=== PATIENT | male | born 1995 | race Caucasian/White ===

== ENCOUNTER 2019-01-17 18:11 | Emergency (ER) | payer SELFPAY ==
--- NOTE | 2019-01-17 20:40 | ER ---
Nurse's Notes [facility] Name: Porfirio Kim Jr Age: 23 yrs Sex: Male : 1995 Arrival Date: 01/17/2019 Time: 18:12 Bed 17 Private MD: Diagnosis: Hypertension Presentation: 01/17 18:20 Presenting complaint: Patient states: my BP is high, i checked it today- 148/90, i felt hj dizzy today; denies N/V;. Transition of care: patient was not received from another setting of care. Onset of symptoms was January 17, 2019. Risk Assessment: Do you want to hurt yourself or someone else? Patient reports no desire to harm self or others. Initial Sepsis Screen: Does the patient meet any 2 criteria? No. Patient's initial sepsis screen is negative. Does the patient have a suspected source of infection? No. Patient's initial sepsis screen is negative. Care prior to arrival: None. 18:20 Method Of Arrival: Ambulatory 18:20 Acuity: JALEN 3 hj Historical: - Allergies: 18:22 No Known Allergies; hj - PMHx: 18:22 None; hj - PSHx: 18:22 None; hj - Family history:: not pertinent. - Hospitalizations: : No recent hospitalization is reported. Screenin:15 Abuse screen: Denies threats or abuse. Nutritional screening: No deficits noted. jb4 Tuberculosis screening: No symptoms or risk factors identified. Fall Risk None identified. Assessment: 19:15 General: Appears in no apparent distress. comfortable, Behavior is calm, cooperative, jb4 appropriate for age. Pain: Denies pain. Neuro: Level of Consciousness is awake, alert, obeys commands, Oriented to person, place, time, situation. Cardiovascular: Patient's skin is warm and dry. Rhythm is sinus rhythm. Respiratory: Airway is patent Respiratory effort is even, unlabored, Respiratory pattern is regular, symmetrical. GI: No deficits noted. No signs and/or symptoms were reported involving the gastrointestinal system. : No deficits noted. No signs and/or symptoms were reported regarding the genitourinary system. EENT: No deficits noted. No signs and/or symptoms were reported regarding the EENT system. Derm: Skin is intact, Skin is pink, warm \T\ dry. Musculoskeletal: Circulation, motion, and sensation intact. Range of motion: intact in all extremities. 20:34 Reassessment: Patient appears in no apparent distress at this time. Patient and/or jb4 family updated on plan of care and expected duration. Pain level reassessed. Patient is alert, oriented x 3, equal unlabored respirations, skin warm/dry/pink. 21:17 Reassessment: Patient appears in no apparent distress at this time. Patient and/or jb4 family updated on plan of care and expected duration. Pain level reassessed. Patient is alert, oriented x 3, equal unlabored respirations, skin warm/dry/pink. Pt verbalized understanding of d/c and follow up instructions. Gave teach back instructions. Ambulated out of Ed with steady gait. Vital Signs: 18:22 BP 155 / 82; Pulse 84; Resp 18; Temp 98.3(O); Pulse Ox 99% on R/A; Weight 85.28 kg; hj Height 5 ft. 5 in. (165.10 cm); 19:30 BP 131 / 91; Pulse 78; Resp 16; Pulse Ox 97% on R/A; jb4 20:30 BP 129 / 71; Pulse 82; Resp 16; Pulse Ox 98% on R/A; jb4 18:22 Body Mass Index 31.29 (85.28 kg, 165.10 cm) ED Course: 18:12 Patient arrived in ED. rg4 18:22 Triage completed. hj 18:22 Arm band placed on left wrist. hj 19:08 Fred Paz MD is Attending Physician. rn 19:15 Patient has correct armband on for positive identification. Bed in low position. Call jb4 light in reach. Side rails up X 1. 19:26 Lorena Vora, RN is Primary Nurse. ph 19:27 Estuardo Sanderson, RN is Primary Nurse. jb4 21:17 No provider procedures requiring assistance completed. Patient did not have IV access jb4 during this emergency room visit. Administered Medications: No medications were administered Outcome: 20:39 Discharge ordered by . rn 21:17 Discharged to home ambulatory. jb4 21:17 Condition: stable 21:17 Discharge instructions given to patient, Instructed on discharge instructions, follow up and referral plans. medication usage, Demonstrated understanding of instructions, follow-up care, medications, Prescriptions given X 1. 21:19 Patient left the ED. jb4 Signatures: Fred Paz MD MD rn Hall, Patricia, RN RN James Montez RN RN Zakiya Nagy 4 Estuardo Sanderson RN RN jb4 Corrections: (The following items were deleted from the chart) 18:24 18:22 Pulse 84bpm; Resp 18bpm; Pulse Ox 99% RA; Temp 98.3F Oral; 85.28 kg; Height 5 ft. hj 5 in.; BMI: 31.2; hj
--- NOTE | 2019-01-17 20:40 | EDPHYS ---
Physician Documentation [facility] Name: Porfirio Kim Jr Age: 23 yrs Sex: Male : 1995 Arrival Date: 01/17/2019 Time: 18:12 Bed 17 Private MD: ED Physician Fred Paz HPI: 01/17 19:25 This 23 yrs old Male presents to ER via Ambulatory with complaints of High rn Blood Pressure. 19:25 The patient has elevated blood pressure and discovered this at home. Onset: The rn symptoms/episode began/occurred reports since last march. Modifying factors:. Severity of symptoms: At its worst the blood pressure was mild. The patient has experienced similar episodes in the past. Reports high daily BP since last March, had trouble passing work physical, no acute symptoms, reports when BP is high feels foggy, no focal neuro complaints, no chest pain or sob. Reports tried to get in with a doctor today, unable to so came here. . Historical: - Allergies: 18:22 No Known Allergies; hj - PMHx: 18:22 None; hj - PSHx: 18:22 None; hj - Family history:: not pertinent. - Hospitalizations: : No recent hospitalization is reported. ROS: 19:25 Constitutional: Negative for fever, chills, and weight loss, Eyes: Negative for injury, rn pain, redness, and discharge, Neck: Negative for injury, pain, and swelling, Cardiovascular: Negative for chest pain, palpitations, and edema, Respiratory: Negative for shortness of breath, cough, wheezing, and pleuritic chest pain, Abdomen/GI: Negative for abdominal pain, nausea, vomiting, diarrhea, and constipation, MS/Extremity: Negative for injury and deformity, Skin: Negative for injury, rash, and discoloration, Neuro: Negative for headache, weakness, numbness, tingling, and seizure. Exam: 19:25 Constitutional: This is a well developed, well nourished patient who is awake, alert, rn and in no acute distress. Sitting upright and talking on the phone when I entered. Head/Face: Normocephalic, atraumatic. Eyes: Pupils equal round and reactive to light, extra-ocular motions intact. Lids and lashes normal. Conjunctiva and sclera are non-icteric and not injected. Cornea within normal limits. Periorbital areas with no swelling, redness, or edema. Neck: Trachea midline, no thyromegaly or masses palpated, and no cervical lymphadenopathy. Supple, full range of motion without nuchal rigidity, or vertebral point tenderness. No Meningismus. Cardiovascular: Regular rate and rhythm. No pulse deficits. Respiratory: Lungs have equal breath sounds bilaterally, clear to auscultation. No increased work of breathing, no retractions or nasal flaring. Abdomen/GI: soft, non-tender MS/ Extremity: Pulses equal, no cyanosis. Neurovascular intact. Full, normal range of motion. Equal circumference. Neuro: Awake and alert, GCS 15, oriented to person, place, time, and situation. Cranial nerves II-XII grossly intact. Motor strength 5/5 in all extremities. Sensory grossly intact. Cerebellar exam normal. Normal gait. 20:35 ECG was reviewed by the Attending Physician. rn Vital Signs: 18:22 BP 155 / 82; Pulse 84; Resp 18; Temp 98.3(O); Pulse Ox 99% on R/A; Weight 85.28 kg; hj Height 5 ft. 5 in. (165.10 cm); 19:30 BP 131 / 91; Pulse 78; Resp 16; Pulse Ox 97% on R/A; jb4 20:30 BP 129 / 71; Pulse 82; Resp 16; Pulse Ox 98% on R/A; jb4 18:22 Body Mass Index 31.29 (85.28 kg, 165.10 cm) MDM: 19:08 Patient medically screened. rn 20:37 Differential diagnosis: HTN. Data reviewed: vital signs, nurses notes, EKG, and as a rn result, I will discharge patient. Counseling: I had a detailed discussion with the patient and/or guardian regarding: the historical points, exam findings, and any diagnostic results supporting the discharge/admit diagnosis, the presence of at least one elevated blood pressure reading (>120/80) during this emergency department visit, the need for outpatient follow up, to return to the emergency department if symptoms worsen or persist or if there are any questions or concerns that arise at home. Response to treatment: the patient's symptoms have mildly improved after treatment, and as a result, I will discharge patient. Special discussion: I have referred the patient to see his PCP for further evaluation of high blood pressure. I discussed with the patient/guardian in detail that at this point there is no indication for admission to the hospital. It is understood, however, that if the symptoms persist or worsen the patient needs to return immediately for re-evaluation. Based on the history and exam findings, there is no indication for further emergent testing or inpatient evaluation. I discussed with the patient/guardian the need to see the primary care provider for further evaluation of the symptoms. ED course: Pt with almost a year of documented high BP, will start on low dose HCTZ and recommend close monitoring and pcp f/u.. 01/17 19:24 Order name: EKG; Complete Time: 19:23 rn 01/17 19:24 Order name: EKG - Nurse/Tech; Complete Time: : rn EC:35 Rate is 68 beats/min. Rhythm is regular. Right axis deviation noted. QRS is positive in rn lead aVF and negative in lead I. CA interval is normal. QRS interval is normal. QT interval is normal. No Q waves. T waves are Inverted in leads III, aVF. No ST changes noted. Clinical impression: NSR w/ Non-specific ST/T Changes. Interpreted by me. Reviewed by me. Administered Medications: No medications were administered Disposition: 01/17/19 20:39 Discharged to Home. Impression: Hypertension. - Condition is Stable. - Discharge Instructions: Hypertension. - Prescriptions for Hydrochlorothiazide 25 mg Oral Tablet - take 1 tablet by ORAL route once daily .; 30 tablet. - Medication Reconciliation Form, Thank You Letter, Antibiotic Education, Prescription Opioid Use form. - Follow up: Private Physician; When: As needed; Reason: Recheck today's complaints, Re-evaluation by your physician. - Problem is an ongoing problem. - Symptoms have improved. Signatures: Frde Paz MD MD rn Joaquin, Henry, RN RN hj Bryson, James, RN RN jb4 Corrections: (The following items were deleted from the chart) 21:19 20:39 01/17/2019 20:39 Discharged to Home. Impression: Hypertension. Condition is jb4 Stable. Forms are Medication Reconciliation Form, Thank You Letter, Antibiotic Education, Prescription Opioid Use. Follow up: Private Physician; When: As needed; Reason: Recheck today's complaints, Re-evaluation by your physician. Problem is an ongoing problem. Symptoms have improved. rn
--- NOTE | 2019-01-18 07:11 | EKG ---
Test Date: 2019-01-17 Test Time: 19:51:53 Box Loader: CHARY MEASUREMENT RESULTS: Intervals: Rate: 68 NE: 124 QRSD: 90 QT: 358 QTc: 380 [place]: P: -26 NE: 124 QRS: 134 T: -22 INTERPRETIVE STATEMENTS: Normal sinus rhythm with sinus arrhythmia Right axis deviation Otherwise normal ECG No previous ECG available for comparison Electronically Signed On 01-18-19 07:10:37 CDT by Luan Caceres
== END 2019-01-17 21:19 | disposition home or self-care (01) ==
LOC: ER 18:11
DX: I10 Essential (primary) hypertension (principal)
CPT/HCPCS: 93005; 99284

== ENCOUNTER 2019-02-08 18:53 | Emergency (ER) | payer SELFPAY ==
[2019-02-08 19:40] LABS: Absolute Lymphocytes (CBC) 2.1 K/uL (0.7-4.9); Basophils % 0.7 % (0-1.3); Hematocrit 43.7 % (39.6-49.0); Lymphocytes % 23.8 % (15.3-44.8); MPV 8.6 fL (7.6-11.3); RBC Red Blood Cell Count 5.43 M/uL (4.33-5.43)
[2019-02-08 20:00] LABS: BUN Blood Urea Nitrogen 19 mg/dL (7-18); Bicarbonate 28 mmol/L (21-32); Glucose Level 95 mg/dL (74-106); Sodium Level 141 mmol/L (136-145); Troponin (Emerg Dept Use Only) < 0.02 ng/mL (0.0-0.045)
--- NOTE | 2019-02-08 20:08 | RAD REPORT ---
EXAM DESCRIPTION: RAD - Chest Single View - 02/08/2019 8:02 pm CLINICAL HISTORY: CHEST PAIN Chest pain. COMPARISON: <Comparisons> FINDINGS: Portable technique limits examination quality. The lungs are grossly clear. The heart is normal in size. No displaced fractures. IMPRESSION: No acute intrathoracic process suspected.
--- NOTE | 2019-02-08 21:39 | EDPHYS ---
Physician Documentation [facility] Name: Porfirio Kim Jr Age: 23 yrs Sex: Male : 1995 Arrival Date: 02/08/2019 Time: 18:57 Bed 30 Private MD: ED Physician Drake Larsen HPI: 02/08 21:35 This 23 yrs old Male presents to ER via Ambulatory with complaints of Chest jr8 Pain. 21:35 The patient or guardian reports chest pain that is located primarily in the substernal jr8 area. The pain does not radiate. Associated signs and symptoms: The patient has no apparent associated signs or symptoms. The chest pain is described as burning. Duration: The patient or guardian reports a single episode, that is still ongoing. Modifying factors: The symptoms are alleviated by nothing. the symptoms are aggravated by nothing. Severity of pain: At its worst the pain was mild in the emergency department the pain is unchanged. The patient has not experienced similar symptoms in the past. The patient has not recently seen a physician. Historical: - Allergies: 19:14 No Known Allergies; tr5 - Home Meds: 19:14 Protonix 20 mg Oral TbEC [Active]; hydrochlorothiazide 25 mg Oral tab [Active]; tr5 telmisartan 20 mg oral tab [Active]; - PMHx: 19:14 Hypertension; tr5 - PSHx: 19:14 None; tr5 - Immunization history:: Adult Immunizations up to date. - Social history:: Smoking status: Patient/guardian denies using tobacco, the patient reports quitting approximately 0 years ago, Patient uses smoking CBD products, but hasn't in 4-5 days. . - Ebola Screening: : No symptoms or risks identified at this time. ROS: 21:35 Eyes: Negative for injury, pain, redness, and discharge, ENT: Negative for injury, jr8 pain, and discharge, Neck: Negative for injury, pain, and swelling, Respiratory: Negative for shortness of breath, cough, wheezing, and pleuritic chest pain, Abdomen/GI: Negative for abdominal pain, nausea, vomiting, diarrhea, and constipation, Back: Negative for injury and pain, MS/Extremity: Negative for injury and deformity, Skin: Negative for injury, rash, and discoloration, Neuro: Negative for headache, weakness, numbness, tingling, and seizure. 21:35 Cardiovascular: Positive for chest pain, Negative for edema, orthopnea, palpitations, paroxysmal nocturnal dyspnea. Exam: 21:35 Eyes: Pupils equal round and reactive to light, extra-ocular motions intact. Lids and jr8 lashes normal. Conjunctiva and sclera are non-icteric and not injected. Cornea within normal limits. Periorbital areas with no swelling, redness, or edema. ENT: Nares patent. No nasal discharge, no septal abnormalities noted. Tympanic membranes are normal and external auditory canals are clear. Oropharynx with no redness, swelling, or masses, exudates, or evidence of obstruction, uvula midline. Mucous membranes moist. Neck: Trachea midline, no thyromegaly or masses palpated, and no cervical lymphadenopathy. Supple, full range of motion without nuchal rigidity, or vertebral point tenderness. No Meningismus. Cardiovascular: Regular rate and rhythm with a normal S1 and S2. No gallops, murmurs, or rubs. Normal PMI, no JVD. No pulse deficits. Respiratory: Lungs have equal breath sounds bilaterally, clear to auscultation and percussion. No rales, rhonchi or wheezes noted. No increased work of breathing, no retractions or nasal flaring. Abdomen/GI: Soft, non-tender, with normal bowel sounds. No distension or tympany. No guarding or rebound. No evidence of tenderness throughout. Back: No spinal tenderness. No costovertebral tenderness. Full range of motion. Skin: Warm, dry with normal turgor. Normal color with no rashes, no lesions, and no evidence of cellulitis. MS/ Extremity: Pulses equal, no cyanosis. Neurovascular intact. Full, normal range of motion. Neuro: Awake and alert, GCS 15, oriented to person, place, time, and situation. Cranial nerves II-XII grossly intact. Motor strength 5/5 in all extremities. Sensory grossly intact. Cerebellar exam normal. Normal gait. Vital Signs: 19:15 BP 140 / 75; Pulse 75; Resp 16; Temp 98.3(O); Pulse Ox 99% on R/A; Weight 85.28 kg (R); tr5 Height 5 ft. 5 in. (165.10 cm); Pain 5/10; 19:46 BP 126 / 72; Pulse 76; Resp 16; Pulse Ox 100% on R/A; tr5 20:30 BP 132 / 70; Pulse 77; Resp 16; Pulse Ox 100% on R/A; tr5 21:34 BP 128 / 72; Pulse 72; Resp 17; Pulse Ox 100% on R/A; tr5 19:15 Body Mass Index 31.28 (85.28 kg, 165.10 cm) tr5 MDM: 19:15 Patient medically screened. 8 21:35 Data reviewed: vital signs, nurses notes, lab test result(s), EKG, radiologic studies, jr plain films, and as a result, I will discharge patient. Data interpreted: Pulse oximetry: on room air is 100 %. Interpretation: normal. Counseling: I had a detailed discussion with the patient and/or guardian regarding: the historical points, exam findings, and any diagnostic results supporting the discharge/admit diagnosis, lab results, radiology results, the need for outpatient follow up, a family practitioner, to return to the emergency department if symptoms worsen or persist or if there are any questions or concerns that arise at home. 02/08 19:21 Order name: CBC with Diff [facility] 02/08 19:21 Order name: Basic Metabolic Panel [facility] 02/08 19:21 Order name: Troponin (emerg Dept Use Only) [facility] 02/08 19:44 Order name: CBC with Automated Diff; Complete Time: 20:05 EDMS 02/08 20:01 Order name: Basic Metabolic Panel; Complete Time: 20:05 EDMS 02/08 20:01 Order name: Troponin (Emerg Dept Use Only); Complete Time: 20:05 EDMS 02/08 19:17 Order name: EKG - Nurse/Tech; Complete Time: 19:17 [facility] 02/08 19:17 Order name: XRAY Chest (1 view) [facility] 02/08 19:21 Order name: IV; Complete Time: 19:25 [facility] 02/08 20:11 Order name: RAD; Complete Time: 20:30 EDMS Administered Medications: No medications were administered Disposition: 02/08/19 21:38 Discharged to Home. Impression: Chest pain, unspecified. - Condition is Stable. - Discharge Instructions: Nonspecific Chest Pain. - Medication Reconciliation Form, Thank You Letter, Antibiotic Education, Prescription Opioid Use form. - Follow up: Private Physician; When: 2 - 3 days; Reason: Recheck today's complaints, Continuance of care, Re-evaluation by your physician. - Problem is new. - Symptoms have improved. Signatures: Dispatcher [employer] Rogerio Hayden PA PA jr8 Brandan Cardona, RN RN tr5 Corrections: (The following items were deleted from the chart) 21:49 21:38 02/08/2019 21:38 Discharged to Home. Impression: Chest pain, unspecified. tr5 Condition is Stable. Forms are Medication Reconciliation Form, Thank You Letter, Antibiotic Education, Prescription Opioid Use. Follow up: Private Physician; When: 2 - 3 days; Reason: Recheck today's complaints, Continuance of care, Re-evaluation by your physician. Problem is new. Symptoms have improved. jr8
--- NOTE | 2019-02-08 21:39 | ER ---
Nurse's Notes [facility] Name: Porfirio Kim Jr Age: 23 yrs Sex: Male : 1995 Arrival Date: 02/08/2019 Time: 18:57 Bed 30 Private MD: Diagnosis: Chest pain, unspecified Presentation: 02/08 19:10 Presenting complaint: Patient states: Today around 4:30 after work I started having a tr5 burning type chest pain in the middle part of my chest. About a 5/10. I was seen here in the ER about a month ago for high blood pressure. I was told to follow up with a PCP but i have not yet. Transition of care: patient was not received from another setting of care. Onset of symptoms was February 08, 2019. Risk Assessment: Do you want to hurt yourself or someone else? Patient reports no desire to harm self or others. Initial Sepsis Screen: Does the patient meet any 2 criteria? No. Patient's initial sepsis screen is negative. Does the patient have a suspected source of infection? No. Patient's initial sepsis screen is negative. Care prior to arrival: None. 19:10 Method Of Arrival: Ambulatory tr5 19:10 Acuity: JALEN 3 tr5 Historical: - Allergies: 19:14 No Known Allergies; tr5 - Home Meds: 19:14 Protonix 20 mg Oral TbEC [Active]; hydrochlorothiazide 25 mg Oral tab [Active]; tr5 telmisartan 20 mg oral tab [Active]; - PMHx: 19:14 Hypertension; tr5 - PSHx: 19:14 None; tr5 - Immunization history:: Adult Immunizations up to date. - Social history:: Smoking status: Patient/guardian denies using tobacco, the patient reports quitting approximately 0 years ago, Patient uses smoking CBD products, but hasn't in 4-5 days. . - Ebola Screening: : No symptoms or risks identified at this time. Screenin:17 Abuse screen: Denies threats or abuse. Nutritional screening: No deficits noted. tr5 Tuberculosis screening: No symptoms or risk factors identified. Fall Risk None identified. Assessment: 19:29 General: Appears uncomfortable, Behavior is calm, cooperative, appropriate for age. tr5 Pain: Complains of pain in mid-sternal area Pain does not radiate. Pain currently is 5 out of 10 on a pain scale. Quality of pain is described as burning, Pain began 3 hours ago. Alleviated by nothing. Neuro: Level of Consciousness is awake, alert, obeys commands, Oriented to person, place, time, situation, Car Storer are equal bilaterally Moves all extremities. Cardiovascular: Heart tones present Capillary refill < 3 seconds Pulses are all present. Edema is absent. Rhythm is regular Chest pain. Respiratory: Airway is patent Respiratory effort is even, unlabored, Respiratory pattern is regular, symmetrical. GI: No signs and/or symptoms were reported involving the gastrointestinal system. : No signs and/or symptoms were reported regarding the genitourinary system. EENT: No signs and/or symptoms were reported regarding the EENT system. Derm: Skin is intact, Skin is dry, Skin is normal, Skin temperature is warm. Musculoskeletal: Capillary refill < 3 seconds, Range of motion: intact in all extremities. 20:30 Reassessment: Patient appears in no apparent distress at this time. Patient and/or tr5 family updated on plan of care and expected duration. Pain level reassessed. Patient is alert, oriented x 3, equal unlabored respirations, skin warm/dry/pink. 21:34 Reassessment: No changes from previously documented assessment. Patient and/or family tr5 updated on plan of care and expected duration. Pain level reassessed. Patient is alert, oriented x 3, equal unlabored respirations, skin warm/dry/pink. Vital Signs: 19:15 BP 140 / 75; Pulse 75; Resp 16; Temp 98.3(O); Pulse Ox 99% on R/A; Weight 85.28 kg (R); tr5 Height 5 ft. 5 in. (165.10 cm); Pain 5/10; 19:46 BP 126 / 72; Pulse 76; Resp 16; Pulse Ox 100% on R/A; tr5 20:30 BP 132 / 70; Pulse 77; Resp 16; Pulse Ox 100% on R/A; tr5 21:34 BP 128 / 72; Pulse 72; Resp 17; Pulse Ox 100% on R/A; tr5 19:15 Body Mass Index 31.28 (85.28 kg, 165.10 cm) tr5 ED Course: 18:57 Patient arrived in ED. mr 19:03 Rogerio Dukes PA is PHCP. jr8 19:03 Drake Larsen MD is Attending Physician. jr8 19:10 Brandan Cardona, RN is Primary Nurse. tr5 19:12 Triage completed. tr5 19:15 Antipyretic given from triage as ordered by the ER provider. Arm band placed on. EKG tr5 completed in triage. Results shown to MD. 19:17 Patient has correct armband on for positive identification. Bed in low position. Call tr5 light in reach. auto hauler on. Pulse ox on. NIBP on. 19:25 Initial lab(s) drawn, by me, sent to lab. EKG done, by ED staff, reviewed by Rogerio PRADHAN. Inserted saline lock: 20 gauge in right antecubital area, using aseptic technique. Blood collected. Patient maintains SpO2 saturation greater than 95% on room air. 19:35 Troponin (emerg Dept Use Only) Sent. jp3 19:35 Basic Metabolic Panel Sent. jp3 19:35 CBC with Diff Sent. jp3 21:46 No provider procedures requiring assistance completed. IV discontinued. tr5 Administered Medications: No medications were administered Outcome: 21:38 Discharge ordered by MD. jr8 21:46 Discharged to home ambulatory. tr5 21:46 Condition: stable 21:46 Discharge instructions given to patient, Instructed on discharge instructions, follow up and referral plans. Demonstrated understanding of instructions, follow-up care. 21:49 Patient left the ED. tr5 Signatures: Queta Campbell Rogerio Dukes PA PA jr8 Woodrow Ruvalcaba jp3 Brandan Cardona, RN RN tr5
--- NOTE | 2019-02-09 07:33 | EKG ---
Test Date: 2019-02-08 Test Time: 19:08:51 Locomotive Engineer: KAREN MEASUREMENT RESULTS: Intervals: Rate: 78 IA: 136 QRSD: 90 QT: 342 QTc: 389 [place]: P: 67 IA: 136 QRS: 82 T: 38 INTERPRETIVE STATEMENTS: Normal sinus rhythm with sinus arrhythmia Normal ECG Compared to ECG 01/17/2019 19:51:53 Right-axis deviation no longer present Electronically Signed On 02-09-19 07:31:22 CDT by Emilio Newman
== END 2019-02-08 21:49 | disposition home or self-care (01) ==
LOC: ER 18:53
DX: R07.9 Chest pain, unspecified (principal); I10 Essential (primary) hypertension
CPT/HCPCS: 36415; 71045; 80048; 84484; 85025; 93005

== ENCOUNTER 2019-02-16 20:17 | Emergency (ER) | payer SELFPAY ==
--- NOTE | 2019-02-16 20:55 | EDPHYS ---
Physician Documentation [facility] Name: Porfirio Kim Jr Age: 23 yrs Sex: Male : 1995 Arrival Date: 02/16/2019 Time: 20:20 Bed 26 Private MD: ED Physician Cristi Shah HPI: 02/16 21:05 This 23 yrs old Male presents to ER via Ambulatory with complaints of Penile kb Pain. 21:05 The patient presents with white spots on penis . Onset: The symptoms/episode kb began/occurred 2 month(s) ago. Modifying factors: The symptoms are alleviated by nothing, the symptoms are aggravated by nothing. Associated signs and symptoms: The patient has no apparent associated signs or symptoms. Severity of symptoms: At their worst the symptoms were mild, in the emergency department the symptoms are unchanged. The patient has not experienced similar symptoms in the past. The patient has not recently seen a physician. Pt reports white spots that come and go on penis. Denies any pain or drainage. STates it started 2-3 months ago. is only sexual partner and she was recently tested for all STDs because of , all negative. . Historical: - Allergies: 20:36 No Known Allergies; lp1 - Home Meds: 20:36 Protonix 20 mg Oral TbEC [Active]; telmisartan 20 mg Oral tab [Active]; lp1 - PMHx: 20:36 Hypertension; lp1 - PSHx: 20:36 None; lp1 - Immunization history:: Adult Immunizations up to date. - Social history:: Smoking status: Patient/guardian denies using tobacco. - Ebola Screening: : No symptoms or risks identified at this time. ROS: 21:10 Constitutional: Negative for fever, chills, and weight loss, Neck: Negative for injury, kb pain, and swelling, Cardiovascular: Negative for chest pain, palpitations, and edema, Respiratory: Negative for shortness of breath, cough, wheezing, and pleuritic chest pain, Abdomen/GI: Negative for abdominal pain, nausea, vomiting, diarrhea, and constipation, MS/Extremity: Negative for injury and deformity, Neuro: Negative for headache, weakness, numbness, tingling, and seizure. 21:10 Skin: Positive for rash. Exam: 21:08 Constitutional: This is a well developed, well nourished patient who is awake, alert, kb and in no acute distress. Head/Face: Normocephalic, atraumatic. Chest/axilla: Normal chest wall appearance and motion. Nontender with no deformity. No lesions are appreciated. Cardiovascular: Regular rate and rhythm with a normal S1 and S2. No gallops, murmurs, or rubs. Normal PMI, no JVD. No pulse deficits. Respiratory: Lungs have equal breath sounds bilaterally, clear to auscultation and percussion. No rales, rhonchi or wheezes noted. No increased work of breathing, no retractions or nasal flaring. Abdomen/GI: Soft, non-tender, with normal bowel sounds. No distension or tympany. No guarding or rebound. No evidence of tenderness throughout. MS/ Extremity: Pulses equal, no cyanosis. Neurovascular intact. Full, normal range of motion. Neuro: Awake and alert, GCS 15, oriented to person, place, time, and situation. Cranial nerves II-XII grossly intact. Motor strength 5/5 in all extremities. Sensory grossly intact. Cerebellar exam normal. Normal gait. 21:08 Skin: rash can be described as small white bumps , on the shaft of penis. Vital Signs: 20:36 BP 150 / 82; Pulse 90; Resp 18; Temp 98.7(TE); Pulse Ox 100% on R/A; Weight 83.91 kg lp1 (R); Height 5 ft. 5 in. (165.10 cm); Pain 0/10; 20:36 Body Mass Index 30.79 (83.91 kg, 165.10 cm) lp1 MDM: 20:43 Patient medically screened. kb 21:08 Data reviewed: vital signs, nurses notes. Data interpreted: Pulse oximetry: on room air kb is 100 %. Interpretation: normal. Counseling: I had a detailed discussion with the patient and/or guardian regarding: the historical points, exam findings, and any diagnostic results supporting the discharge/admit diagnosis, the need for outpatient follow up, a safety spec, to return to the emergency department if symptoms worsen or persist or if there are any questions or concerns that arise at home. ED course: Recommended pt see a safety spec for rash. Pt reports he has been told that already, but has been unable to go due to work. Just came to make sure it wasn't an STD. . Administered Medications: No medications were administered Disposition: 21:55 Co-signature as Attending Physician, Cristi Shah MD I agree with the assessment and kdr plan of care. Disposition: 02/16/19 20:54 Discharged to Home. Impression: Rash and other nonspecific skin eruption. - Condition is Stable. - Discharge Instructions: Rash, [id number]. - Medication Reconciliation Form, Thank You Letter, Antibiotic Education, Prescription Opioid Use form. - Follow up: Emergency Department; When: As needed; Reason: Worsening of condition. Follow up: Private Physician; When: 2 - 3 days; Reason: Recheck today's complaints, Continuance of care, Re-evaluation by your physician. Signatures: Noni Elizondo, MEDICAL RECORDS LIBRARY PROFESSOR-C MEDICAL RECORDS LIBRARY PROFESSOR-Cristi Cotton MD MD kdr Geno Wood, RN RN lp1 Tayler Reynaga RN RN ca1 Corrections: (The following items were deleted from the chart) 21:22 20:54 02/16/2019 20:54 Discharged to Home. Impression: Rash and other nonspecific skin ca1 eruption. Condition is Stable. Forms are Medication Reconciliation Form, Thank You Letter, Antibiotic Education, Prescription Opioid Use. Follow up: Emergency Department; When: As needed; Reason: Worsening of condition. Follow up: Private Physician; When: 2 - 3 days; Reason: Recheck today's complaints, Continuance of care, Re-evaluation by your physician. kb
--- NOTE | 2019-02-16 20:55 | ER ---
Nurse's Notes [facility] Name: Porfirio Kim Jr Age: 23 yrs Sex: Male : 1995 Arrival Date: 02/16/2019 Time: 20:20 Bed 26 Private MD: Diagnosis: Rash and other nonspecific skin eruption Presentation: 02/16 20:33 Presenting complaint: Patient states: noticed bumps to genital area with some pus; lp1 States they haven't gone away and is concerned. Transition of care: patient was not received from another setting of care. Onset of symptoms was February 16, 2019. Risk Assessment: Do you want to hurt yourself or someone else? Patient reports no desire to harm self or others. Initial Sepsis Screen: Does the patient meet any 2 criteria? No. Patient's initial sepsis screen is negative. Does the patient have a suspected source of infection? No. Patient's initial sepsis screen is negative. Care prior to arrival: None. 20:33 Method Of Arrival: Ambulatory lp1 20:33 Acuity: JALEN 4 lp1 Historical: - Allergies: 20:36 No Known Allergies; lp1 - Home Meds: 20:36 Protonix 20 mg Oral TbEC [Active]; telmisartan 20 mg Oral tab [Active]; lp1 - PMHx: 20:36 Hypertension; lp1 - PSHx: 20:36 None; lp1 - Immunization history:: Adult Immunizations up to date. - Social history:: Smoking status: Patient/guardian denies using tobacco. - Ebola Screening: : No symptoms or risks identified at this time. Screenin:40 Abuse screen: Denies threats or abuse. Denies injuries from another. Nutritional ca1 screening: No deficits noted. Tuberculosis screening: No symptoms or risk factors identified. Fall Risk None identified. Assessment: 20:40 General: Appears in no apparent distress. comfortable, Behavior is calm, cooperative, ca1 appropriate for age. Pain: Complains of pain in pelvis and shaft of penis Pain currently is 2 out of 10 on a pain scale. Neuro: Level of Consciousness is awake, alert, obeys commands, Oriented to person, place, time, situation. Cardiovascular: Heart tones S1 S2 present Capillary refill < 3 seconds Patient's skin is warm and dry. Respiratory: Airway is patent Respiratory effort is even, unlabored, Respiratory pattern is regular, symmetrical, Breath sounds are clear bilaterally. : Genitalia appear normal. EENT: No deficits noted. No signs and/or symptoms were reported regarding the EENT system. Derm: Skin is intact, is healthy with good turgor, Skin is pink, warm \T\ dry. Musculoskeletal: Circulation, motion, and sensation intact. Capillary refill < 3 seconds, Range of motion: intact in all extremities. 21:21 Reassessment: Patient appears in no apparent distress at this time. Patient is alert, ca1 oriented x 3, equal unlabored respirations, skin warm/dry/pink. Vital Signs: 20:36 BP 150 / 82; Pulse 90; Resp 18; Temp 98.7(TE); Pulse Ox 100% on R/A; Weight 83.91 kg lp1 (R); Height 5 ft. 5 in. (165.10 cm); Pain 0/10; 20:36 Body Mass Index 30.79 (83.91 kg, 165.10 cm) lp1 ED Course: 20:20 Patient arrived in ED. mr 20:35 Triage completed. lp1 20:36 Arm band placed on right wrist. lp1 20:37 Tayler Reynaga, ANAYA is Primary Nurse. ca1 20:40 Patient has correct armband on for positive identification. Placed in gown. Bed in low ca1 position. Call light in reach. Side rails up X 1. Pulse ox on. NIBP on. Warm blanket given. 20:40 No provider procedures requiring assistance completed. Patient did not have IV access ca1 during this emergency room visit. 20:43 Noni Elizondo FNP-C is [facility]. kb 20:43 Cristi Shah MD is Attending Physician. kb Administered Medications: No medications were administered Outcome: 20:54 Discharge ordered by . kb 21:21 Discharged to home ambulatory. ca1 21:21 Condition: stable 21:21 Discharge instructions given to patient, Instructed on discharge instructions, follow up and referral plans. Demonstrated understanding of instructions, follow-up care. 21:22 Patient left the ED. ca1 Signatures: Noni Elizodno FNP-C FNP-Emi Queta Campbell Geno Wood RN RN lp1 Tayler Reyanga RN RN ca1 Corrections: (The following items were deleted from the chart) 20:37 20:33 Acuity: JALEN 3 lp1 lp1 21:21 21:21 Reassessment: Patient appears in no apparent distress at this time. Patient ca1 and/or family updated on plan of care and expected duration. Pain level reassessed. Patient is alert, oriented x 3, equal unlabored respirations, skin warm/dry/pink. ca1
== END 2019-02-16 21:22 | disposition home or self-care (01) ==
LOC: ER 20:17
DX: R21 Rash and other nonspecific skin eruption (principal); I10 Essential (primary) hypertension
CPT/HCPCS: 99283